=== PATIENT | male | born 1960 | race Caucasian/White ===

== ENCOUNTER → 2017-03-15 | Outpatient (CLI) | payer OTHER ==
[2017-03-15 08:27] LABS: BASO % 1 % (0-3); EOS # 0.1 x10^3/uL (0.0-0.7); EOS % 3 % (0-3); HEMATOCRIT 35.9 % (39.0-53.0); HEMOGLOBIN 12.6 g/dL (13.0-17.5); LYMPH # 0.9 x10^3/uL (1.0-4.8); LYMPH % 38 % (24-48); MEAN CORPUSCULAR HEMOGLOBIN 33 pg (25-35); MEAN CORPUSCULAR HGB CONC 35 g/dL (31-37); MEAN CORPUSCULAR VOLUME 93 fL (79-100); MONO # 0.3 x10^3/uL (0.0-1.1); MONO % 12 % (0-9); NEUT % 46 % (31-73); PLATELET COUNT 43 x10^3/uL (140-400); RED BLOOD COUNT 3.86 x10^6/uL (4.30-5.70); RED CELL DISTRIBUTION WIDTH 15.9 % (11.5-14.5); WHITE BLOOD COUNT 2.2 x10^3/uL (4.0-11.0)
[2017-03-15 08:35] LABS: ALBUMIN 2.8 g/dL (3.4-5.0); ALBUMIN/GLOBULIN RATIO 0.8 (1.0-1.7); BILIRUBIN,URINE NEG (NEG); CALCIUM 8.3 mg/dL (8.5-10.1); CLARITY,URINE CLEAR; COLOR,URINE YELLOW; CREATININE 0.9 mg/dL (0.7-1.3); GFR 87.6; GLUCOSE,URINE NEG (NEG); NITRITE,URINE NEG (NEG); POTASSIUM 4.3 mmol/L (3.5-5.1); RBC,URINE 0 /HPF (0-2); TOTAL PROTEIN 6.1 g/dL (6.4-8.2); UROBILINOGEN,URINE 1 mg/dL (0.2 mg/dL)
[2017-03-15 08:36] LABS: BACTERIA,URINE 0 /HPF (0-FEW); SQUAMOUS EPITHELIAL CELL,UR OCC /LPF; WBC,URINE 0 /HPF (0-4)
[2017-03-15 11:07] LABS: % BANDS 1 % (0-9); % BASOS 0 % (0-3); % EOS 4 % (0-5); % LYMPHS 42 % (24-48); % MONOS 11 % (0-10); % SEGS 42 % (35-66); PLT ESTIMATE DECREASED (ADEQUATE)
== END | disposition home or self-care (01) ==
LOC: EEVIPCON 08:16 → SPEC 08:16
PROVIDERS: ATTEND Nurse Practitioner Family
DX: N40.1 Benign prostatic hyperplasia with lower urinary tract symptoms (principal)
CPT/HCPCS: 36415; 80053; 81001; 85007; 85025

== ENCOUNTER → 2019-08-11 | Outpatient (CLI) | payer OTHER ==
[2019-08-11 12:22] LABS: BASO % 1 % (0-3); EOS # 0.2 x10^3/uL (0.0-0.7); EOS % 4 % (0-3); HEMATOCRIT 49.8 % (39.0-53.0); HEMOGLOBIN 16.8 g/dL (13.0-17.5); LYMPH # 1.5 x10^3/uL (1.0-4.8); LYMPH % 24 % (24-48); MEAN CORPUSCULAR HEMOGLOBIN 33 pg (25-35); MEAN CORPUSCULAR HGB CONC 34 g/dL (31-37); MEAN CORPUSCULAR VOLUME 97 fL (79-100); MONO # 0.5 x10^3/uL (0.0-1.1); MONO % 7 % (0-9); NEUT # 4.1 x10^3uL (1.8-7.7); NEUT % 65 % (31-73); PLATELET COUNT 85 x10^3/uL (140-400); RED BLOOD COUNT 5.15 x10^6/uL (4.30-5.70); WHITE BLOOD COUNT 6.3 x10^3/uL (4.0-11.0)
[2019-08-11 12:33] LABS: ALBUMIN/GLOBULIN RATIO 1.1 (1.0-1.7); CALCIUM 9.3 mg/dL (8.5-10.1); POTASSIUM 4.1 mmol/L (3.5-5.1); TOTAL BILIRUBIN 1.9 mg/dL (0.2-1.0); TOTAL PROTEIN 7.7 g/dL (6.4-8.2)
[2019-08-11 13:07] LABS: PLT ESTIMATE DECREASED (ADEQUATE)
== END | disposition home or self-care (01) ==
LOC: SPEC 12:12 → EEVIPCON 12:12
PROVIDERS: ATTEND Family Medicine
DX: R04.2 Hemoptysis (principal)
CPT/HCPCS: 36415; 80053; 85025

== ENCOUNTER → 2019-08-11 | Outpatient (CLI) | payer OTHER ==
[2019-08-11 18:31] LABS: BASO % 1 % (0-3); EOS # 0.1 x10^3/uL (0.0-0.7); EOS % 4 % (0-3); HEMATOCRIT 42.5 % (39.0-53.0); HEMOGLOBIN 14.5 g/dL (13.0-17.5); LYMPH # 0.9 x10^3/uL (1.0-4.8); LYMPH % 28 % (24-48); MEAN CORPUSCULAR HEMOGLOBIN 33 pg (25-35); MEAN CORPUSCULAR HGB CONC 34 g/dL (31-37); MEAN CORPUSCULAR VOLUME 96 fL (79-100); MONO # 0.3 x10^3/uL (0.0-1.1); MONO % 8 % (0-9); NEUT % 60 % (31-73); PLATELET COUNT 57 x10^3/uL (140-400); RED BLOOD COUNT 4.42 x10^6/uL (4.30-5.70); WHITE BLOOD COUNT 3.4 x10^3/uL (4.0-11.0)
== END | disposition home or self-care (01) ==
LOC: SPEC 18:16
PROVIDERS: ATTEND Family Medicine
DX: R04.2 Hemoptysis (principal)
CPT/HCPCS: 36415; 85025

== ENCOUNTER 2020-01-15 17:48 | Emergency (ER) | payer OTHER ==
[~2020-01-15] VITALS: Ht 177.8 cm; Wt 101.5 kg
[2020-01-15] MEDS ORDERED: IOHEXOL 350 MG/ML 100 ML VIAL. IV ONE (18:30)
[2020-01-15 18:32] LABS: BASO % 1 % (0-3); EOS # 0.2 x10^3/uL (0.0-0.7); EOS % 5 % (0-3); HEMATOCRIT 42.8 % (39.0-53.0); HEMOGLOBIN 14.6 g/dL (13.0-17.5); LYMPH # 0.9 x10^3/uL (1.0-4.8); LYMPH % 26 % (24-48); MEAN CORPUSCULAR HEMOGLOBIN 32 pg (25-35); MEAN CORPUSCULAR HGB CONC 34 g/dL (31-37); MEAN CORPUSCULAR VOLUME 92 fL (79-100); MONO # 0.4 x10^3/uL (0.0-1.1); MONO % 11 % (0-9); NEUT # 1.9 x10^3uL (1.8-7.7); NEUT % 57 % (31-73); PLATELET COUNT 51 x10^3/uL (140-400); RED BLOOD COUNT 4.64 x10^6/uL (4.30-5.70); WHITE BLOOD COUNT 3.3 x10^3/uL (4.0-11.0)
[2020-01-15 18:41] LABS: CALCIUM 8.9 mg/dL (8.5-10.1); CREATININE 1.2 mg/dL (0.7-1.3); GFR 62.2; POTASSIUM 4.4 mmol/L (3.5-5.1)
--- NOTE | 2020-01-15 19:07 | RAD ---
EXAM: CTA NECK WITH AND WITHOUT CONTRAST. HISTORY: Right neck laceration. TECHNIQUE: Computed tomographic angiography of the neck was performed before and after the intravenous administration of iodinated contrast. Three-dimensional reconstructions were also performed. COMPARISON: None. FINDINGS: Bandage material is placed along the right neck overlying the sternocleidomastoid muscle. The underlying the laceration appears superficial, and the platysma appears intact. There is no evidence of underlying vascular injury or active extravasation. Angiographic findings: The aortic arch has a typical branching pattern. There is no arch vessel stenosis. Both common carotid arteries are patent without stenosis. Both internal carotid arteries are patent without stenosis. The external carotid systems are patent. The vertebral arteries are patent. Nonangiographic findings: Bone windows reveal no suspicious lesions. There is moderate to severe degenerative disc disease from C5 through C7, with severe right uncovertebral osteoarthritis. These result in right lateral recess stenosis and severe right foraminal stenosis. The lung apices demonstrate no acute abnormality. The parotid glands and submandibular glands are unremarkable. The left thyroid lobe is subtotally atrophic. There are no laryngeal or pharyngeal masses. There are no pathologically enlarged lymph nodes. IMPRESSION: 1. The right and a laceration appears superficial. No evidence of vascular injury. 2. No hemodynamically significant cervical arterial stenosis. PQRS Compliance Statement - Stenosis calculations for CT, MR and conventional angiography are based upon measurement of the distal ICA diameter in accordance with the NASCET methodology. Stenosis calculations for carotid ultrasound studies are derived from validated velocity criteria which are known to correlate with the NASCET methodology. *One or more of the following individualized dose reduction techniques were utilized for this examination: 1. Automated exposure control. 2. Adjustment of the mA and/or kV according to patient size. 3. Use of iterative reconstruction technique. Electronically signed by: David Duvall MD (01/15/2020 7:04 PM) [facility]
[2020-01-15 19:21] LABS: PLT ESTIMATE DECREASED (ADEQUATE)
[2020-01-15 19:38] VITALS: BP 154/72
[2020-01-15] MEDS ORDERED: IV NORMAL SALINE 50ML 50 ML ONE (19:41)
[2020-01-15] MEDS ORDERED: cefTRIAXone SODIUM 1 GM VIAL ONE (19:41)
--- NOTE | 2020-01-15 20:10 | PHYS DOC ---
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 The patient cut himself with a razor. He just found out that his cancer treatments are not working and he has end-stage liver cancer. The patient currently regrets his decision. He has a Y-shaped laceration of the right neck. It is bleeding but not briskly. He has no other injuries. Review of Systems: Review of Systems: Constitutional: Denies fever or chills Eyes: Denies change in visual acuity HENT: Denies nasal congestion or sore throat Respiratory: Denies cough or shortness of breath Cardiovascular: Denies chest pain or edema GI: Denies abdominal pain, nausea, vomiting, bloody stools or diarrhea : Denies dysuria Musculoskeletal: Denies back pain or joint pain Integument: Neck laceration Neurologic: Denies headache, focal weakness or sensory changes Endocrine: Denies polyuria or polydipsia Lymphatic: Denies swollen glands Psychiatric: Denies depression or anxiety Heart Score: Risk Factors: Risk Factors: DM, Current or recent (<one month) smoker, HTN, HLP, family history of CAD, obesity. Risk Scores: Score 0 - 3: 2.5% MACE over next 6 weeks - Discharge Home Score 4 - 6: 20.3% MACE over next 6 weeks - Admit for Clinical Observation Score 7 - 10: 72.7% MACE over next 6 weeks - Early Invasive Strategies Current Medications: Current Meds: Current Medications Medications (Trade) Dose Ordered Sig/Chacha Start Time Stop Time Status Last Admin Dose Admin Ceftriaxone Sodium 1 gm/ Sodium Chloride 50 ml @ 100 mls/hr 1X ONCE 01/15/20 20:00 01/15/20 20:29 01/15/20 19:43 100 MLS/HR Ceftriaxone Sodium (Rocephin) 1 gm STK-MED ONCE 01/15/20 19:41 01/15/20 19:41 DC Iohexol (Omnipaque 350 Mg/ml) 100 ml 1X ONCE 01/15/20 18:30 01/15/20 18:32 DC 01/15/20 18:25 100 ML Sodium Chloride 50 ml @ As Directed STK-MED ONCE 01/15/20 19:41 01/15/20 19:41 DC Allergies: Allergies: Allergies Coded Allergies Type Severity Reaction Last Updated Verified ketorolac Allergy Intermediate 01/15/20 Yes Physical Exam: PE: Constitutional: Well developed, well nourished, no acute distress, non-toxic appearance. [] HENT: Normocephalic, atraumatic, bilateral external ears normal, oropharynx moist, no oral exudates, nose normal. [] Eyes: PERRLA, EOMI, conjunctiva normal, no discharge. [] Neck: Normal range of motion, no tenderness, supple, no stridor. [] Cardiovascular:Heart rate regular rhythm, no murmur [] Lungs & Thorax: Bilateral breath sounds clear to auscultation [] Abdomen: Bowel sounds normal, soft, no tenderness, no masses, no pulsatile masses. [] Skin: 9 cm Y-shaped laceration of the right neck, superficial [] Back: No tenderness, no CVA tenderness. [] Extremities: No tenderness, no cyanosis, no clubbing, ROM intact, no edema. [] Neurologic: Alert and oriented X 3, normal motor function, normal sensory function, no focal deficits noted. [] Psychologic: Affect normal, judgement normal, mood normal. [] Current Patient Data: Labs: Laboratory Tests Test 01/15/20 18:09 White Blood Count 3.3 x10^3/uL (4.0-11.0) L Red Blood Count 4.64 x10^6/uL (4.30-5.70) Hemoglobin 14.6 g/dL (13.0-17.5) Hematocrit 42.8 % (39.0-53.0) Mean Corpuscular Volume 92 fL (79-100) Mean Corpuscular Hemoglobin 32 pg (25-35) Mean Corpuscular Hemoglobin Concent 34 g/dL (31-37) Red Cell Distribution Width 14.0 % (11.5-14.5) Platelet Count 51 x10^3/uL (140-400) L Neutrophils (%) (Auto) 57 % (31-73) Lymphocytes (%) (Auto) 26 % (24-48) Monocytes (%) (Auto) 11 % (0-9) H Eosinophils (%) (Auto) 5 % (0-3) H Basophils (%) (Auto) 1 % (0-3) Neutrophils # (Auto) 1.9 x10^3uL (1.8-7.7) Lymphocytes # (Auto) 0.9 x10^3/uL (1.0-4.8) L Monocytes # (Auto) 0.4 x10^3/uL (0.0-1.1) Eosinophils # (Auto) 0.2 x10^3/uL (0.0-0.7) Basophils # (Auto) 0.0 x10^3/uL (0.0-0.2) Platelet Estimate Decreased (ADEQUATE) Sodium Level 140 mmol/L (136-145) Potassium Level 4.4 mmol/L (3.5-5.1) Chloride Level 107 mmol/L (98-107) Carbon Dioxide Level 24 mmol/L (21-32) Anion Gap 9 (6-14) Blood Urea Nitrogen 18 mg/dL (8-26) Creatinine 1.2 mg/dL (0.7-1.3) Estimated GFR (Cockcroft-Gault) 62.2 Glucose Level 257 mg/dL (70-99) H Calcium Level 8.9 mg/dL (8.5-10.1) Vital Signs: Vital Signs Date Time Temp Pulse Resp B/P (MAP) Pulse Ox O2 Delivery O2 Flow Rate FiO2 01/15/20 19:38 60 16 154/72 (99) 97 Nasal Cannula 2.0 01/15/20 17:59 98.3 EKG: EKG: [] Radiology/Procedures: Radiology/Procedures: [] Course & Med Decision Making: Course & Med Decision Making Pertinent Labs and Imaging studies reviewed. (See chart for details) The patient had a complex Y-shaped laceration of his neck. I repaired it with sutures. See note below for more details. The patient's tetanus is up-to-date. He is suicidal but [facility] is in [facility] manage his [facility] evaluation. He is medically stable to return to [facility]. [] Dragon Disclaimer: Dragon Disclaimer: This electronic medical record was generated, in whole or in part, using a voice recognition dictation system. Laceration Repair Lac Repair Indication: [] 9 cm Y-shaped laceration of the right neck Procedure: I obtained verbal consent from the patient and his guards for suture repair of his laceration. The wound was thoroughly irrigated with normal saline under pressure. No foreign bodies were found. I used 1% lidocaine without epinephrine for anesthesia. A total of 4 ml was used. Once good anesthesia was achieved, I repaired the wound with 4-0 Ethilon sutures. 11 sutures in interrupted fashion were placed. There was good skin approximation. Bleeding was controlled. Wound was covered with Xeroform and Tegaderm. The patient's tetanus was less than 6 months old. Total repaired wound length: 9 cm Other Items: None The patient tolerated the procedure well. Complications: Y-shaped laceration of the neck Departure Departure: Impression: Primary Impression: Laceration of neck Qualified Codes: S11.91XA - Laceration without foreign body of unspecified part of neck, initial encounter Additional Impression: Suicide attempt Disposition: 01 HOME/RESIDENCE PRIOR TO ADM Condition: STABLE Referrals: MARC GREENBERG (PCP) Patient Instructions: Laceration Care, Adult, [id number] Justification of Admission: Justification of Admission: Justification of Admission Dx: N/A HARRIET FATIMA DO Jan 15, 2020 20:10
== END 2020-01-15 20:20 | disposition home or self-care (01) ==
LOC: EEVIPCON 17:48 → ER 17:48
DX: S11.91XA Laceration without foreign body of unspecified part of neck, initial encounter (principal); E11.9 Type 2 diabetes mellitus without complications; I10 Essential (primary) hypertension; C22.8 Malignant neoplasm of liver, primary, unspecified as to type; Z88.8 Allergy status to other drugs, medicaments and biological substances; X78.8XXA Intentional self-harm by other sharp object, initial encounter; Y93.89 Activity, other specified; Y92.89 Other specified places as the place of occurrence of the external cause; Y99.8 Other external cause status
CPT/HCPCS: 12004; 36415; 70498; 80048; 85025; 96365; 99284; J0696; Q9967

== ENCOUNTER 2020-02-24 23:15 | Emergency (ER) | payer OTHER ==
[~2020-02-24] VITALS: Ht 188 cm; Wt 102.6 kg
[2020-02-24 23:54] LABS: CALCIUM 8.3 mg/dL (8.5-10.1); GFR 76.7; POTASSIUM 5.4 mmol/L (3.5-5.1)
--- NOTE | 2020-02-24 23:57 | RAD ---
INDICATION: Reason: CP / Spl. Instructions: / History: COMPARISON: July 06, 2017 FINDINGS: Single view of chest obtained. Mild linear opacity at lung bases. Cardiac silhouette is mildly prominent. Old left clavicular fracture with callus formation. IMPRESSION: * Linear opacities lung bases could be secondary to atelectasis. Electronically signed by: Mauri Pearson MD (02/24/2020 11:54 PM) [id number]
[2020-02-25 00:02] LABS: BASO # 0.1 x10^3/uL (0.0-0.2); BASO % 1 % (0-3); EOS # 0.2 x10^3/uL (0.0-0.7); EOS % 4 % (0-3); HEMATOCRIT 44.5 % (39.0-53.0); HEMOGLOBIN 15.1 g/dL (13.0-17.5); LYMPH # 1.4 x10^3/uL (1.0-4.8); LYMPH % 30 % (24-48); MEAN CORPUSCULAR HEMOGLOBIN 31 pg (25-35); MEAN CORPUSCULAR HGB CONC 34 g/dL (31-37); MEAN CORPUSCULAR VOLUME 92 fL (79-100); MONO # 0.5 x10^3/uL (0.0-1.1); MONO % 11 % (0-9); NEUT # 2.4 x10^3uL (1.8-7.7); NEUT % 54 % (31-73); PLATELET COUNT 83 x10^3/uL (140-400); RED BLOOD COUNT 4.83 x10^6/uL (4.30-5.70); RED CELL DISTRIBUTION WIDTH 15.2 % (11.5-14.5); WHITE BLOOD COUNT 4.5 x10^3/uL (4.0-11.0)
[2020-02-25 00:08] LABS: ALBUMIN 2.9 g/dL (3.4-5.0); ALBUMIN/GLOBULIN RATIO 0.8 (1.0-1.7); TOTAL BILIRUBIN 1.4 mg/dL (0.2-1.0); TOTAL PROTEIN 6.6 g/dL (6.4-8.2)
[2020-02-25] MEDS ORDERED: INSULIN REGULAR 100 UNIT/ML 3ML VIAL. IV ONE (00:15)
[2020-02-25] MEDS ORDERED: ONDANSETRON PF 4 MG/2 ML VIAL. IVP ONE (00:15)
[2020-02-25] MEDS ORDERED: MORPHINE SULFATE 2 MG/ML DISP.SYRIN. IV ONE ×2 (00:15→01:30)
[2020-02-25] MEDS ORDERED: IV NORMAL SALINE 1,000ML 1,000 ML IV ONE (00:15)
--- NOTE | 2020-02-25 00:17 | PHYS DOC ---
Past History Past Medical History: Cancer, Diabetes, Hypertension Past Surgical History: No Surgical History Alcohol Use: None General Adult EDM: Chief Complaint: CHEST PAIN HPI: HPI: 60-year-old male presents from [facility] with chest pain. Patient was sitting watching TV around 10 PM when he started to have central chest pain that radiated to his left arm. It is a squeezing and cramping sensation. It is moderate in intensity. The patient is a diabetic and is had difficulty co ntrolling his blood sugars lately. On arrival was 386. Patient further states that the pain is moved down the left arm and he has some pain in the right side of his neck. He denies trauma or falls. He just recently got restarted on his blood pressure medicine list 3 or 4 days. His blood pressure earlier today was 180s. He denies fever or chills. He had COVID-19 and has recovered. Review of Systems: Review of Systems: Constitutional: Denies fever or chills Eyes: Denies change in visual acuity HENT: Denies nasal congestion or sore throat Respiratory: Denies cough or shortness of breath Cardiovascular: Chest pain GI: Denies abdominal pain, nausea, vomiting, bloody stools or diarrhea : Denies dysuria Musculoskeletal: Left arm pain and tingling. Integument: Denies rash Neurologic: Denies headache, focal weakness or sensory changes Endocrine: Denies polyuria or polydipsia Lymphatic: Denies swollen glands Psychiatric: Denies depression or anxiety Heart Score: HEART Score for Chest Pain: HEART Score for Chest Pain Response (Comments) Value History Slighlty/Non-Suspicious 0 ECG Nonspecific Repolarizatio 1 Age >45 - < 65 1 Risk Factors 1 or 2 Risk Factors 1 Troponin < Normal Limit 0 Total 3 Risk Factors: Risk Factors: DM, Current or recent (<one month) smoker, HTN, HLP, family history of CAD, obesity. Risk Scores: Score 0 - 3: 2.5% MACE over next 6 weeks - Discharge Home Score 4 - 6: 20.3% MACE over next 6 weeks - Admit for Clinical Observation Score 7 - 10: 72.7% MACE over next 6 weeks - Early Invasive Strategies Current Medications: Current Meds: Current Medications Medications (Trade) Dose Ordered Sig/Chacha Start Time Stop Time Status Last Admin Dose Admin Morphine Sulfate (Morphine 2mg Syringe) 2 mg 1X ONCE 02/25/20 00:15 02/25/20 00:16 UNV Ondansetron HCl (Zofran) 4 mg 1X ONCE 02/25/20 00:15 02/25/20 00:16 UNV Sodium Chloride 1,000 ml @ 1,000 mls/hr 1X ONCE 02/25/20 00:15 02/25/20 01:14 UNV Allergies: Allergies: Allergies Coded Allergies Type Severity Reaction Last Updated Verified ketorolac Allergy Intermediate 01/15/20 Yes Physical Exam: PE: Constitutional: Well developed, well nourished, no acute distress, non-toxic appearance. [] HENT: Normocephalic, atraumatic, bilateral external ears normal, oropharynx moist, no oral exudates, nose normal. [] Eyes: PERRLA, EOMI, conjunctiva normal, no discharge. [] Neck: Normal range of motion, no tenderness, supple, no stridor. [] Cardiovascular: Heart rate regular rhythm, no murmur [] Lungs & Thorax: Bilateral breath sounds clear to auscultation [] Abdomen: Bowel sounds normal, soft, no tenderness, no masses, no pulsatile masses. [] Skin: Warm, dry, no erythema, no rash. [] Back: No tenderness, no CVA tenderness. [] Extremities: No tenderness, no cyanosis, no clubbing, ROM intact, no edema. [] Neurologic: Alert and oriented X 3, normal motor function, normal sensory function, no focal deficits noted. [] Psychologic: Affect normal, judgement normal, mood normal. [] EKG: EKG: Sinus rhythm, rate 72, leftward axis, no ST elevations or depressions, PVC. [] Radiology/Procedures: Radiology/Procedures: [] Impressions: INDICATION: Reason: CP / Spl. Instructions: / History: COMPARISON: July 06, 2017 FINDINGS: Single view of chest obtained. Mild linear opacity at lung bases. Cardiac silhouette is mildly prominent. Old left clavicular fracture with callus formation. IMPRESSION: * Linear opacities lung bases could be secondary to atelectasis. Electronically signed by: Amanda Pearson MD (02/24/2020 11:54 PM) [id number] DICTATED AND SIGNED BY: AMANDA PEARSON MD DATE: 02/24/20 [id number] CC: HARRIET FATIMA DO; MARC GREENBERG ~ Course & Med Decision Making: Course & Med Decision Making Pertinent Labs and Imaging studies reviewed. (See chart for details) The patient's initial blood sugar is 386. We will give him a liter of normal saline and 10 units of regular insulin IV. Labs are pending. His EKG is ne gative for acute findings. His chest x-ray shows some atelectasis. He has several abnormal labs consistent with his liver disease. He also has a potassium of 5.4 but the specimen is slightly hemolyzed. He has a history of being in the mid to high fours in the past. See labs for more details. The patient's repeat blood sugar is just over 200. I have given the patient a total of 4 mg of morphine for his discomfort. He is already on tramadol at the present. I believe there is anything else that we can do for him at this time. He is stable for discharge. [] Dragon Disclaimer: Dragon Disclaimer: This electronic medical record was generated, in whole or in part, using a voice recognition dictation system. 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
[2020-02-25 00:35] LABS: % ATYL 4 % (0-0); % LYMPHS 27 % (24-48); % MONOS 12 % (0-10); % SEGS 57 % (35-66)
[2020-02-25 00:36] LABS: PLT ESTIMATE DECREASED (ADEQUATE)
[2020-02-25] MEDS ORDERED: GABA600T7 PO (00:59)
[2020-02-25] MEDS ORDERED: vitamin D3 PO (00:59)
[2020-02-25] MEDS ORDERED: TRAM50TA PO (00:59)
[2020-02-25] MEDS ORDERED: CARV3.12 PO (00:59)
[2020-02-25] MEDS ORDERED: NPH,100V SQ ×2 (00:59)
[2020-02-25] MEDS ORDERED: METF500T16 PO (00:59)
[2020-02-25] MEDS ORDERED: ALBU2.5V8 INH (00:59)
[2020-02-25] MEDS ORDERED: TOLN108P2 TP (00:59)
[2020-02-25] MEDS ORDERED: FURO-69 PO (01:03)
[2020-02-25] MEDS ORDERED: LOSA50TA86 PO (01:03)
[2020-02-25] MEDS ORDERED: ACET325T9 PO (01:03)
[2020-02-25] MEDS ORDERED: INSU100V5 IJ (01:03)
[2020-02-25] MEDS ORDERED: MIRT15TA3 PO (01:03)
[2020-02-25 01:30] VITALS: BP 149/90
--- NOTE | 2020-02-25 02:28 | EKG ---
[address] [address] Test Date: 2020-02-24 Test Time: 23:18:45 Pat Name: MAL MCDANIEL Department: Room: Gender: M Lip Cutter: : 1960 Requested By: HARRIET FATIMA Order Number: [id number] Reading MD: Measurements Intervals [place] Rate: 72 P: -42 OK: 176 QRS: -48 QRSD: 116 T: 62 QT: 434 QTc: 477 Interpretive Statements SUPRAVENTRICULAR RHYTHM VENTRICULAR PREMATURE COMPLEX(ES) ABNORMAL LEFT AXIS DEVIATION R-S TRANSITION ZONE IN V LEADS DISPLACED TO THE RIGHT LEFT ANTERIOR FASCICULAR BLOCK LEFT VENTRICULAR HYPERTROPHY QRS(T) CONTOUR ABNORMALITY CONSIDER ANTEROSEPTAL MYOCARDIAL DAMAGE PROLONGED QT ABNORMAL ECG RI6.02 No previous ECG available for comparison
[2020-02-25 05:05] LABS: BILIRUBIN,URINE NEG (NEG); CLARITY,URINE HAZY; COLOR,URINE YELLOW; GLUCOSE,URINE >=1000 mg/dL (NEG)
[2020-02-25 05:06] LABS: BACTERIA,URINE FEW /HPF (0-FEW); NITRITE,URINE NEG (NEG); SQUAMOUS EPITHELIAL CELL,UR FEW /LPF; WBC,URINE 0 /HPF (0-4)
== END 2020-02-25 01:45 | disposition home or self-care (01) ==
LOC: ER 23:15 → EEVIPCON 23:15 → ER 02-25 01:45
DX: R07.89 Other chest pain (principal); E11.65 Type 2 diabetes mellitus with hyperglycemia; I10 Essential (primary) hypertension; Z79.4 Long term (current) use of insulin; Z88.8 Allergy status to other drugs, medicaments and biological substances
CPT/HCPCS: 36415; 71045; 80053; 81001; 82947; 83880; 84484; 85007; 85025; 93005; 96361; 96374; 96375; 96376; 99285; J1815; J2270; J2405; J7030

== ENCOUNTER → 2020-06-11 | Outpatient (CLI) | payer OTHER ==
[~2020-06-11] MED LIST: ACET325T9 PO; ALBU2.5V8 INH; CARV3.12 PO; FURO-69 PO; GABA600T7 PO; INSU100V5 IJ; LOSA50TA86 PO; METF500T16 PO; MIRT15TA3 PO; NPH,100V SQ; TOLN108P2 TP; TRAM50TA PO; vitamin D3 PO
[2020-06-11 02:07] LABS: BASO % 1 % (0-3); CALCIUM 8.8 mg/dL (8.5-10.1); CREATININE 1.1 mg/dL (0.7-1.3); EOS # 0.2 x10^3/uL (0.0-0.7); EOS % 4 % (0-3); GFR 68.8; HEMATOCRIT 42.6 % (39.0-53.0); HEMOGLOBIN 13.9 g/dL (13.0-17.5); LYMPH # 1.2 x10^3/uL (1.0-4.8); LYMPH % 25 % (24-48); MEAN CORPUSCULAR HEMOGLOBIN 30 pg (25-35); MEAN CORPUSCULAR HGB CONC 33 g/dL (31-37); MEAN CORPUSCULAR VOLUME 90 fL (79-100); MONO # 0.5 x10^3/uL (0.0-1.1); MONO % 10 % (0-9); NEUT # 2.8 x10^3uL (1.8-7.7); NEUT % 60 % (31-73); PLATELET COUNT 71 x10^3/uL (140-400); POTASSIUM 4.7 mmol/L (3.5-5.1); RED BLOOD COUNT 4.72 x10^6/uL (4.30-5.70); RED CELL DISTRIBUTION WIDTH 16.7 % (11.5-14.5); WHITE BLOOD COUNT 4.6 x10^3/uL (4.0-11.0)
[2020-06-11 02:13] LABS: ALBUMIN 3.2 g/dL (3.4-5.0); ALBUMIN/GLOBULIN RATIO 0.9 (1.0-1.7); PHOSPHORUS 4.5 mg/dL (2.6-4.7); TOTAL BILIRUBIN 0.9 mg/dL (0.2-1.0); TOTAL PROTEIN 6.8 g/dL (6.4-8.2); URIC ACID 4.6 mg/dL (3.5-7.2)
[2020-06-11 02:16] LABS: BACTERIA,URINE 0 /HPF (0-FEW); BILIRUBIN,URINE NEG (NEG); CLARITY,URINE CLEAR; COLOR,URINE YELLOW; GLUCOSE,URINE 500 mg/dL (NEG); NITRITE,URINE NEG (NEG); RBC,URINE RARE /HPF (0-2); SQUAMOUS EPITHELIAL CELL,UR OCC /LPF; UROBILINOGEN,URINE 0.2 mg/dL (0.2 mg/dL); WBC,URINE RARE /HPF (0-4)
== END ==
LOC: SPEC 01:37
PROVIDERS: ATTEND Student in an Organized Health Care Education/Training Program
DX: E72.20 Disorder of urea cycle metabolism, unspecified (principal)
CPT/HCPCS: 36415; 80053; 81001; 82977; 83615; 84100; 84550; 85025

== ENCOUNTER → 2020-07-19 | Outpatient (CLI) | payer OTHER ==
[2020-07-19 02:30] LABS: BASO # 0.1 x10^3/uL (0.0-0.2); BASO % 1 % (0-3); EOS # 0.1 x10^3/uL (0.0-0.7); EOS % 2 % (0-3); HEMATOCRIT 41.9 % (39.0-53.0); HEMOGLOBIN 13.8 g/dL (13.0-17.5); LYMPH % 15 % (24-48); MEAN CORPUSCULAR HEMOGLOBIN 28 pg (25-35); MEAN CORPUSCULAR HGB CONC 33 g/dL (31-37); MEAN CORPUSCULAR VOLUME 85 fL (79-100); MONO # 0.6 x10^3/uL (0.0-1.1); MONO % 9 % (0-9); NEUT # 4.9 x10^3uL (1.8-7.7); NEUT % 73 % (31-73); PLATELET COUNT 126 x10^3/uL (140-400); RED BLOOD COUNT 4.93 x10^6/uL (4.30-5.70); RED CELL DISTRIBUTION WIDTH 17.1 % (11.5-14.5); WHITE BLOOD COUNT 6.7 x10^3/uL (4.0-11.0)
== END ==
LOC: SPEC 01:46
PROVIDERS: ATTEND General Practice
DX: E27.2 Addisonian crisis (principal)
CPT/HCPCS: 36415; 80053; 82140; 85025

== ENCOUNTER 2021-02-28 02:36 | Inpatient (IN) | payer OTHER ==
[~2021-02-28] VITALS: Ht 188 cm; Wt 102.4 kg
[~2021-02-28 02:36] MED LIST changes: +MIRT-7 PO; -MIRT15TA3 PO
[2021-02-28] MEDS ORDERED: CONTRAST GIVEN. MC PRN (03:00)
[2021-02-28] MEDS ORDERED: MORPHINE SULFATE 4 MG/ML DISP.SYRIN. IV ONE ×2 (03:15→05:15)
[2021-02-28 03:27] LABS: BASO % 1 % (0-3); EOS # 0.1 x10^3/uL (0.0-0.7); EOS % 3 % (0-3); HEMATOCRIT 43.4 % (39.0-53.0); HEMOGLOBIN 14.2 g/dL (13.0-17.5); LYMPH # 1.1 x10^3/uL (1.0-4.8); LYMPH % 19 % (24-48); MEAN CORPUSCULAR HEMOGLOBIN 28 pg (25-35); MEAN CORPUSCULAR HGB CONC 33 g/dL (31-37); MEAN CORPUSCULAR VOLUME 85 fL (79-100); MONO # 0.3 x10^3/uL (0.0-1.1); MONO % 6 % (0-9); NEUT # 4.2 x10^3uL (1.8-7.7); NEUT % 72 % (31-73); PLATELET COUNT 76 x10^3/uL (140-400); RED BLOOD COUNT 5.11 x10^6/uL (4.30-5.70); RED CELL DISTRIBUTION WIDTH 20.3 % (11.5-14.5); WHITE BLOOD COUNT 5.8 x10^3/uL (4.0-11.0)
[2021-02-28] MEDS ORDERED: IOHEXOL 350 MG/ML 100 ML VIAL. IV ONE (03:30)
--- NOTE | 2021-02-28 03:32 | PHYS DOC ---
Past History Past Medical History: Anemia, Anxiety, Cancer, COPD, Depression, Diabetes, GERD, GI Bleed, Hypertension, Liver Disease, Other Additional Past Medical Histor: Covid-19 Oct, 2019; cancer of liver; esophageal and stomach varices-abdpain Past Surgical History: Cholecystectomy, Other Additional Past Surgical Histo: banding of esoph varices x14;cauterized stom varices; alexandre ing nikole repair Alcohol Use: None Adult General Chief Complaint Chief Complaint: SHORTNESS OF BREATH HPI HPI Patient is a 61-year-old male who presents from [facility] in custody for chief complaint of shortness of breath. Patient has a significant past medical history of end-stage cholangiocarcinoma no longer on chemotherapy or radiation, COPD and anemia who presents with shortness of breath. States that he is always somewhat short of breath and on 3 to 4 L of oxygen all the time but over the last 12 hours or so has gotten considerably more short of breath and required much more oxygen. Denies any recent traumas, travels, illnesses, fevers, chest pain, dysuria, hematuria, diarrhea or blood in the stool. Denies any nausea or vomiting. Does endorse dyspnea on exertion, some orthopnea, PND and bilateral lower extremity edema. Endorses distended abdomen, with some cramping, 5 out of 10, dull and achy in nature. States he has been eating and drinking normally. States he is making urine and stool normally for him. Patient states he is DNR, not wanting any chest compressions, shocks or intubation. States that noninvasive positive pressure ventilation/oxygen, fluids, blood pressure medicines, pain and nausea medicines and antibiotics are okay. Review of Systems Review of Systems Review of systems otherwise unremarkable except noted in HPI Current Medications Current Medications Current Medications Medications (Trade) Dose Ordered Sig/Chacha Start Time Stop Time Status Last Admin Dose Admin Info (Do NOT chart on this entry -- for MONITORING) 1 each PRN DAILY PRN 02/28/21 03:00 03/02/21 02:59 Iohexol (Omnipaque 350 Mg/ml) 100 ml 1X ONCE 02/28/21 03:30 02/28/21 03:31 02/28/21 03:23 100 ML Morphine Sulfate (Morphine 4mg Syringe) 4 mg 1X ONCE 02/28/21 03:15 02/28/21 03:16 DC Allergies Allergies Allergies Coded Allergies Type Severity Reaction Last Updated Verified ketorolac Allergy Intermediate 02/28/21 Yes NSAIDS (Non-Steroidal Anti-Inflamma Allergy Unknown 02/25/20 Yes calcium carbonate Allergy Unknown 02/25/20 Yes enalapril Allergy Unknown 02/25/20 Yes Physical Exam Physical Exam Constitutional: Well developed, well nourished, no acute distress, non-toxic appearance. [] HENT: Normocephalic, atraumatic, bilateral external ears normal, oropharynx moist, no oral exudates, nose normal. [] Eyes: conjunctiva normal, no discharge. [] Neck: Normal range of motion, no tenderness, supple, no stridor. [] Cardiovascular: Sinus tachycardia Lungs & Thorax: Bilateral breath sounds with global mild rales, decreased air movement and chest expansion, tachypnea and hypoxia with increased work of breathing on room air Abdomen: Distended, hard, generalized tenderness, no rebound or guarding Skin: Warm, dry, no erythema, no rash. [] Back: no CVA tenderness. [] Extremities: No tenderness, no cyanosis, no clubbing, ROM intact, bilateral lower extremity 2+ pitting edema Neurologic: Alert and oriented X 3, no focal deficits noted. [] Psychologic: Affect normal, judgement normal, mood normal. [] Current Patient Data Vital Signs Vital Signs Date Time Temp Pulse Resp B/P (MAP) Pulse Ox O2 Delivery O2 Flow Rate FiO2 02/28/21 02:52 98.5 95 40 161/99 92 15.0 EKG EKG [] Radiology/Procedures Radiology/Procedures [] CT abdomen and pelvis without contrast: Reason for examination: Acute shortness of breath and hypoxia. History of hepatitis and hepatocellular carcinoma. Comparison is made to previous study dated 07/30/2019. Helical images were obtained through the abdomen and pelvis with no contrast ad ministered. Reconstruction was performed in sagittal and coronal planes. There continues to be a rim calcified exophytic mass in segment 3 of the liver measuring 2.8 cm in greatest dimension which appears to be stable. There also continues to be focal decreased density in the inferior right lobe of liver, segment 6 which has enlarged and measures approximately 4 cm in greatest dim ension. This may reflect the location of the hepatocellular carcinoma. The liver appears to be cirrhotic. The spleen is enlarged at approximately 17 cm in greatest dimension. No abnormalities of seen at the adrenal glands or pancreas. Gallbladder is surgically absent. The kidneys show no renal masses, renal calculi, hydronephrosis or evidence of obstructive uropathy. No abnormality seen at the appendix. The colon shows no diverticulosis, diverticulitis or colitis. The small intestinal tract shows no abnormal dilatation, wall thickening or obstruction. No acute abnormality seen at the stomach or duodenum. There does appear to be some free ascites prevertebral around the liver and spleen. No abnormality seen at the bladder. Prostate gland contains calcifications. Seminal vesicles are symmetric. No acute bony abnormalities are seen. IMPRESSION: Cirrhotic liver with a enlarging mass in the inferior right lobe of the liver now measuring 4 cm in greatest dimension and probably correspond to the patient's known hepatocellular carcinoma. Rim calcified exophytic mass in the left lobe of the liver measuring 2.8 cm in greatest dimension without significant change. Splenomegaly. Ascites which is increased from previous exam. CT angiogram of the chest with contrast: Helical images were obtained through the chest with intravenous administration of 98 cc Omnipaque 350 using PE protocol. 3-D MIPS reconstruction was performed in sagittal and coronal planes. No abnormality seen at the thyroid gland. The trachea and mainstem bronchi show no intraluminal lesions. No abnormality seen at the esophagus. The thoracic aorta shows no aneurysmal dilatation or dissection. The heart size is normal with no pericardial effusion. No pulmonary embolus is evident. There are a few small bullous changes in the apices of the lungs. There is some dependent atelectasis but no gross consolidated infiltrates or pleural effusions are seen. No acute bony abnormalities are seen. IMPRESSION: No evidence of pulmonary embolus. No aortic aneurysm or dissection. No acute cardiopulmonary disease evident. Heart Score C/O Chest Pain: No Risk Factors: Risk Factors: DM, Current or recent (<one month) smoker, HTN, HLP, family history of CAD, obesity. Risk Scores: Risk Factors: DM, Current or recent (<one month) smoker, HTN, HLP, family history of CAD, obesity. Course & Med Decision Making Course & Med Decision Making Patient is a 61-year-old male who presents with acute shortness of breath Vital signs notable for hypertension, tachycardia, tachypnea, hypoxia on room air requiring 15 L nasal cannula to get to approximately 93% saturation. Placed on the monitor with IV access established. Given pain medicine. Denied need for nausea medicine at this time. EKG noted above with sinus tachycardia. Troponin normal. Coags normal. ABG not concerning. CTs of the chest abdomen pelvis with no PE, no pneumonia or pneumothorax, did show worsening liver mass and a small amount of ascites, cirrhotic liver corresponding with patient's known hepatocellular carcinoma and splenomegaly. Patient given Rocephin to cover for SBP. Given continued pain management. Given Protonix. Discussed all findings with patient and recommended admission for continued evaluation and treatment of his hypoxia and possible SBP. Patient grateful, verbalized understanding and agreed with plan of admission. Dragon Disclaimer Dragon Disclaimer This electronic medical record was generated, in whole or in part, using a voice recognition dictation system. Departure Departure: Disposition: ADMITTED INPATIENT Admitting Physician: Arnaldo Rivera Condition: STABLE Referrals: MECCA BLACKWELL MD (PCP) CHRISTIE LIM MD Feb 28, 2021 03:32
[2021-02-28 03:57] LABS: CALCIUM 8.2 mg/dL (8.5-10.1); CREATININE 0.5 mg/dL (0.7-1.3); GFR 170.2; POTASSIUM 5.3 mmol/L (3.5-5.1)
[2021-02-28 04:11] LABS: ALBUMIN 3.3 g/dL (3.4-5.0); ALBUMIN/GLOBULIN RATIO 1.1 (1.0-1.7); TOTAL PROTEIN 6.4 g/dL (6.4-8.2)
--- NOTE | 2021-02-28 04:13 | RAD ---
CT abdomen and pelvis without contrast: Reason for examination: Acute shortness of breath and hypoxia. History of hepatitis and hepatocellula r carcinoma. Comparison is made to previous study dated 07/30/2019. Helical images were obtained through the abdomen and pelvis with no contrast administered. Reconstruc tion was performed in sagittal and coronal planes. There continues to be a rim calcified exophytic mass in segment 3 of the liver measuring 2.8 cm in gr eatest dimension which appears to be stable. There also continues to be focal decreased density in th e inferior right lobe of liver, segment 6 which has enlarged and measures approximately 4 cm in great est dimension. This may reflect the location of the hepatocellular carcinoma. The liver appears to be cirrhotic. The spleen is enlarged at approximately 17 cm in greatest dimension. No abnormalities of seen at the adrenal glands or pancreas. Gallbladder is surgically absent. The kidneys show no renal m asses, renal calculi, hydronephrosis or evidence of obstructive uropathy. No abnormality seen at the appendix. The colon shows no diverticulosis, diverticulitis or colitis. The small intestinal tract sh ows no abnormal dilatation, wall thickening or obstruction. No acute abnormality seen at the stomach or duodenum. There does appear to be some free ascites prevertebral around the liver and spleen. No abnormality seen at the bladder. Prostate gland contains calcifications. Seminal vesicles are symm etric. No acute bony abnormalities are seen. IMPRESSION: Cirrhotic liver with a enlarging mass in the inferior right lobe of the liver now measuring 4 cm in g reatest dimension and probably correspond to the patient's known hepatocellular carcinoma. Rim calcified exophytic mass in the left lobe of the liver measuring 2.8 cm in greatest dimension wit hout significant change. Splenomegaly. Ascites which is increased from previous exam. CT angiogram of the chest with contrast: Helical images were obtained through the chest with intravenous administration of 98 cc Omnipaque 350 using PE protocol. 3-D MIPS reconstruction was performed in sagittal and coronal planes. No abnormality seen at the thyroid gland. The trachea and mainstem bronchi show no intraluminal lesio ns. No abnormality seen at the esophagus. The thoracic aorta shows no aneurysmal dilatation or dissec tion. The heart size is normal with no pericardial effusion. No pulmonary embolus is evident. There a re a few small bullous changes in the apices of the lungs. There is some dependent atelectasis but no gross consolidated infiltrates or pleural effusions are seen. No acute bony abnormalities are seen. IMPRESSION: No evidence of pulmonary embolus. No aortic aneurysm or dissection. No acute cardiopulmonary disease evident. Exposure: One or more of the following individualized dose reduction techniques were utilized for thi s examination: 1. Automated exposure control 2. Adjustment of the mA and/or kV according to patient size 3. Use of iterative reconstruction technique. Electronically signed by: Isabella Musa MD (02/28/2021 4:11 AM) YAKELIN
[2021-02-28 04:14] LABS: PLT ESTIMATE DECREASED (ADEQUATE)
[2021-02-28] MEDS ORDERED: HYDR25CA75 PO ×2 (04:32→09:51)
[2021-02-28] MEDS ORDERED: POLY17PO5 PO ×2 (04:33→09:51)
[2021-02-28] MEDS ORDERED: MAGN100T6 PO ×2 (04:35→09:51)
[2021-02-28] MEDS ORDERED: DULO60CA6 PO ×2 (04:36→09:51)
[2021-02-28] MEDS ORDERED: ACET12.55 PO (04:41)
[2021-02-28] MEDS ORDERED: IBUP200T44 PO (04:43)
[2021-02-28] MEDS ORDERED: MORP-15 PO ×2 (04:44→09:58)
[2021-02-28] MEDS ORDERED: ONDANSETRON PF 4 MG/2 ML VIAL. IVP PRN (04:45)
[2021-02-28] MEDS ORDERED: MORPHINE SULFATE 2 MG/ML DISP.SYRIN. IVP PRN (04:45)
[2021-02-28] MEDS ORDERED: IV NORMAL SALINE 50ML 50 ML ONE (04:46)
[2021-02-28] MEDS ORDERED: cefTRIAXone SODIUM 1 GM VIAL ONE (04:46)
[2021-02-28 04:57] LABS: BILIRUBIN,URINE NEG (NEG); CLARITY,URINE CLEAR; COLOR,URINE YELLOW; GLUCOSE,URINE 100 mg/dL (NEG)
[2021-02-28 04:58] LABS: NITRITE,URINE NEG (NEG)
[2021-02-28 04:59] LABS: BGAS PH 7.35 (7.35-7.46)
[2021-02-28 05:00] LABS: BACTERIA,URINE 0 /HPF (0-FEW)
[2021-02-28] MEDS ORDERED: LABETALOL 20 MG/4 ML DISP.SYRIN. IVP ONE (05:00)
--- NOTE | 2021-02-28 05:06 | RAD ---
Chest AP portable at 0301: Reason for examination: Short of breath. Comparison is made to previous study dated 02/24/2020. The heart size is normal. Mediastinum is unremarkable. Lung fagan are clear. No acute bony abnormali ties are seen. IMPRESSION: No acute cardiopulmonary disease evident. Electronically signed by: Isabella Musa MD (02/28/2021 5:04 AM) SARAH
[2021-02-28] MEDS ORDERED: PANTOPRAZOLE IV 40 MG VIAL. IVP ONE (05:15)
--- NOTE | 2021-02-28 06:33 | EKG ---
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
--- NOTE | 2021-02-28 09:38 | NUR ---
PATIENT ARRIVED TO THE UNIT FROM THE ED VIA GURNEY ACCOMPANIED BY 2 [facility] GUARDS. PATIENT IS ALERT AND ORIENTED. PATIENT IS COMPLAINING OF A HEADACHE AND NAUSEA. PATIENT IS ON 8L NC. PATIENT NORMALLY WEARS 4-5L NC AT HOME. PATIENT STATED THAT HE HAS BECOMING INCREASINGLY SHORT OF BREATH RECENTLY AND THINKS HE MAY HAVE COVID. PATIENT RAPID COVID TEST IS NEGATIVE AND WE ARE STILL WAITING ON THE PCR RESULTS. WILL TAKE THE NECESSARY PRECAUTIONS UNTIL PCR RESULTS ARE OBTAINED. DR STANLEY WAS PAGED FOR ADMISSION ORDERS AND TO CLARIFY PATIENT ADMISSION STATUS. PATIENT IS MED SURG WITH CONSULT TO CASE MANAGEMENT FOR HOSPICE CARE.
[2021-02-28] MEDS ORDERED: GABA600T7 PO (09:51)
[2021-02-28] MEDS ORDERED: tylenol with codeine PO (09:58)
[2021-02-28] MEDS ORDERED: IBUP600T16 PO (09:58)
[2021-02-28] MEDS ORDERED: MORPHINE ER 15 MG TABLET.ER PO ONE ×2 (10:35→11:30)
[2021-02-28 11:00] VITALS: BP 153/90
[2021-02-28] MEDS ORDERED: MORPHINE ER 15 MG TABLET.ER PO SCH ×2 (11:00→21:00)
[2021-02-28] MEDS: MORPHINE ER 15 MG TABLET.ER PO SCH ×2 (11:00→20:34)
[2021-02-28] MEDS: GABAPENTIN 400 MG CAPSULE. PO SCH ×2 (11:01→20:34)
[2021-02-28] MEDS: DULoxetine HCL 60 MG CAPSULE.DR PO SCH (11:01)
[2021-02-28] MEDS: ACETAMINOPHEN/CODEINE 300/30MG TABLET PO PRN ×2 (11:01→20:35)
[2021-02-28] MEDS: POLYETHYLENE GLYCOL 3350 17 GM PACKET. PO SCH ×2 (14:00→20:33)
[2021-02-28 15:00] VITALS: BP 142/85
--- NOTE | 2021-02-28 16:13 | RAD ---
EXAM: CT head without contrast INDICATION: Dizziness and lightheadedness COMPARISON: None TECHNIQUE: Axial CT imaging through the head without intravenous contrast. One or more of the following individualized dose reduction techniques were utilized for this examinat ion: 1. Automated exposure control 2. Adjustment of the mA and/or kV according to patient size 3. Use of iterative reconstruction technique. FINDINGS: The ventricles and sulci are within normal limits. There is no intracranial hemorrhage, acute infarct , or mass lesion. Pleitez-white matter differentiation is maintained. No acute fracture. The visualized paranasal sinuses and mastoid air cells are clear. IMPRESSION: No acute intracranial abnormality. Electronically signed by: Brynn Rouse MD (02/28/2021 4:11 PM) [id number]
--- NOTE | 2021-02-28 16:57 | HP ---
ADMIT DATE: 02/28/2021 HISTORY OF PRESENT ILLNESS: The patient is a 61-year-old male patient and an [facility], who presented to the Emergency Room with shortness of breath. He states that he is always somewhat short of breath and on 3-4 liters of oxygen all the time, but over the last 12 hours or so it has gotten considerably more short of breath and requires more oxygen. He denied any recent trauma, travel, illness, fever or chest pain. He also feels that he was dizzy and describes his feeling as foggy, but denied any nausea, vomiting. He did complain of dyspnea on exertion, some orthopnea, paroxysmal nocturnal dyspnea. He also endorses a distended abdomen with some cramping 5/10, dull and achy in nature. States has been eating and drinking normally. He stated that he is making urine and stool normally for him. He was extensively investigated in the Emergency Room, has had lab work and imaging studies. His lab works were other than thrombocytopenia were unremarkable. His blood gases showed a pH of 7.35, a pCO2 of 52, pO2 of 72, bicarbonate 28 and oxygen saturation was 93%. His coagulations are essentially normal with the prothrombin time, INR and APTT within normal limits. His chemistry apart from mild hyperkalemia are all within normal range as hyperglycemia, slightly elevated liver enzymes. Urinalysis essentially unremarkable other than mild proteinuria and glycosuria, has had imaging studies including CT scan of the abdomen and pelvis, which basically showed that the patient is cirrhotic with a large mass in the inferior right lobe of the liver, now measuring 4 cm in the greatest dimension and probably corresponds to the patient's known hepatocellular carcinoma, rim calcified exophytic mass in the left lobe of the liver measuring 2.8 cm in greatest dimension without significant changes, splenomegaly, ascites, which is increased from previous exam. CT angio of the chest with contrast showed no evidence of pulmonary embolism, no acute aortic aneurysm or dissection, no acute cardiopulmonary disease evident. The patient was admitted and was continued on his medication and to consult our case management as apparently the patient himself has decided not to take any of his medication, and given the unremarkable CT scan of the chest and disproportionate hypoxemia, the patient probably has hepatopulmonary syndrome and only other aspect that has not looked into is CT scan of the head, I will also check his orthostatics and check his ammonia. PAST MEDICAL HISTORY: Significant for hepatitis C with liver cirrhosis due that he is status post therapy for hepatitis C. He has also diabetes, portal hypertension with esophageal varices and ascites and acute blood loss anemia. PAST SURGICAL HISTORY: According to him, he has 31 surgeries. He has multiple endoscopies and colonoscopies. ALLERGIES: He is allergic to NONSTEROIDAL ANTI-INFLAMMATORY medication, CALCIUM CARBONATE, ENALAPRIL AND KETOROLAC. FAMILY HISTORY: Noncontributory. SOCIAL HISTORY: He has been in group home for all his life since he was 20 years old. He apparently does not drink or smoke. MEDICATIONS: He is currently on the following medication, but apparently he was not taking by his own choice including ibuprofen 600 mg 3 times a day, morphine sulfate extended release 15 mg twice a day, gabapentin 1200 mg twice a day, duloxetine 60 mg daily, hydroxyzine pamoate 25 mg every 6 hours, magnesium citrate 100 mg takes four tablets at bedtime, Ritalin glycol 17 grams daily, and Tylenol with Codeine 2 tablets 3 times a day. PHYSICAL EXAMINATION: GENERAL: On arrival to the Emergency Room, the patient looked well and definitely showed no evidence of pallor, jaundice, cyanosis. No lymphadenopathy, no thyromegaly, no jugular venous distention. Mild bilateral lower limb edema. VITAL SIGNS: His heart rate was 95, blood pressure 161/99, temperature was 98.5, respiratory rate 14, and oxygen saturation was 92% on 15 liters of oxygen. HEAD, EYES, EARS, NOSE, AND THROAT: Normocephalic, atraumatic. NECK: Supple. HEART: Showed normal first and second heart sounds. No gallop or murmur. CHEST: Clear to auscultation. No crepitation or rhonchi. ABDOMEN: Markedly distended, soft with positive shifting dullness. There is no guarding or rigidity. No organomegaly. All hernial orifice intact. Bowel sounds normal. NEUROLOGIC: He was awake, alert, responding appropriately. All cranial nerves intact. He moves extremities without difficulty. LABORATORY DATA: On admission showed a white cell count 5800, hemoglobin 14, hematocrit 43, MCV 85 and platelet count of 76,000. His serum sodium was 136, potassium 5.3, chloride 103, bicarbonate 26, anion gap of 7, BUN 20, creatinine 0.5. Estimated GFR was 170 mL per minute, his glucose was ___, calcium was 8.2. Lactic acid is 1.3, magnesium 2, total bilirubin is normal. Alkaline phosphatase slightly elevated. ALT is normal. His troponin was less than 0.017. His beta natriuretic peptide was 68. Total protein was 6.4, albumin was 3.3. His prothrombin time/INR and APTT are normal. Blood gases showed a pH of 7.35, pCO2 of 52, pO2 72, bicarbonate 28 and oxygen saturation was 93% on FiO2 100%. Urinalysis showed the urine was yellow, clear with a pH of 5, specific gravity more than 1.030, more than 100 mg/dL protein in the urine and 100 mg of glucose. The urine was negative for ketones, moderate amount of blood, negative for nitrite, negative for leukocyte esterase, 1-2 rbc's, 1-4 wbc's and no bacteria. His chest x-ray showed the heart size is normal. Mediastinum is unremarkable. Lung fagan are clear. No acute bony abnormality is seen. His CT angio of the chest showed no evidence of pulmonary embolism, no aortic aneurysm or dissection, no acute cardiopulmonary disease evident. On CT scan of the abdomen and pelvis showed the patient has cirrhotic liver with enlarging mass in the anterior right lobe of the liver now measuring 4 cm in greatest dimension, probably corresponds to the patient's known hepatocellular carcinoma, then calcified exophytic mass in the left lobe of the liver measuring 2.8 cm in greatest dimension without significant changes, splenomegaly and ascites, which has increased from previous exam. PLAN: My plan is to check his ammonia level, check his CT scan of the head without contrast and check his orthostatics and also his oxygen saturation without oxygen line, sitting and standing to see whether he has a hepatopulmonary syndrome. We will have to discuss with renal case manager and his doctor there at [facility] whether hospice care can be accommodated. JHONATHAN DR: [place] TID: [id number]
[2021-02-28] MEDS ORDERED: DEXTROSE 50% 25 GM / 50ML DISP.SYRIN. IV PRN (19:15)
[2021-02-28 19:45] VITALS: BP 142/85
[2021-02-28] MEDS: IBUPROFEN 600 MG TABLET. PO PRN (20:34)
[2021-02-28] MEDS: INSULIN LISPRO 300 UNITS/3 ML VIAL. SQ SCH (20:59)
[2021-02-28] MEDS ORDERED: MAGNESIUM OXIDE 400 MG TABLET PO SCH (21:00)
--- NOTE | 2021-02-28 22:50 | NUR ---
Pt gets up to go the bathroom and desats to 79%. Pt states, "I feel ok. Getting up going to the bathroom is nothing."
[2021-03-01] MEDS: IBUPROFEN 600 MG TABLET. PO PRN ×3 (03:56→17:59)
[2021-03-01] MEDS: ACETAMINOPHEN/CODEINE 300/30MG TABLET PO PRN ×2 (03:56→18:00)
[2021-03-01 04:10] VITALS: BP 164/99
[2021-03-01 07:00] VITALS: BP 184/107
[2021-03-01 07:08] LABS: HEMATOCRIT 39.4 % (39.0-53.0); HEMOGLOBIN 12.8 g/dL (13.0-17.5); RED BLOOD COUNT 4.58 x10^6/uL (4.30-5.70); RED CELL DISTRIBUTION WIDTH 20.3 % (11.5-14.5); WHITE BLOOD COUNT 4.6 x10^3/uL (4.0-11.0)
[2021-03-01 07:25] LABS: ALBUMIN 2.8 g/dL (3.4-5.0); CREATININE 0.9 mg/dL (0.7-1.3); GFR 86.4; POTASSIUM 4.3 mmol/L (3.5-5.1); TOTAL BILIRUBIN 0.8 mg/dL (0.2-1.0); TOTAL PROTEIN 5.6 g/dL (6.4-8.2)
[2021-03-01] MEDS: INSULIN LISPRO 300 UNITS/3 ML VIAL. SQ SCH ×3 (07:30→16:30)
[2021-03-01] MEDS ORDERED: INSULIN LISPRO 300 UNITS/3 ML VIAL. SQ SCH (08:00)
[2021-03-01] MEDS: DULoxetine HCL 60 MG CAPSULE.DR PO SCH (08:54)
[2021-03-01] MEDS: MORPHINE ER 15 MG TABLET.ER PO SCH ×2 (08:55→18:00)
[2021-03-01] MEDS: hydrOXYzine PAMOATE 25 MG CAPSULE PO PRN ×2 (08:55→18:00)
[2021-03-01] MEDS: GABAPENTIN 400 MG CAPSULE. PO SCH ×2 (08:55→17:59)
[2021-03-01] MEDS: POLYETHYLENE GLYCOL 3350 17 GM PACKET. PO SCH ×2 (09:00→14:00)
[2021-03-01 11:00] VITALS: BP 160/99
[2021-03-01 15:00] VITALS: BP 187/103
--- NOTE | 2021-03-01 18:45 | NUR ---
Patient was discharged back to facility with recommendations for hospice and increased oxygen needs. Patient discharge information packet was sent with [facility] guard. Patient left the unit via wheelchair escorted by [facility] personnel. Patient was on 8L NC upon discharge.
--- NOTE | 2021-03-06 18:30 | DS ---
DATE OF DISCHARGE: 03/01/2021 HOSPITAL COURSE: The patient is a 61-year-old male patient an [facility], who presented to the Emergency Room with shortness of breath. He states that he is always somewhat short of breath on 3 or 4 liters of oxygen all the time, but over the last 12 hours or so, it has gotten considerably more short of breath and requires more oxygen. He denied any recent trauma, travel illness, fever or chest pain. He also feels that he was dizzy and describes his feeling as foggy, but denied any nausea or vomiting. He did complain of dyspnea on exertion, some orthopnea, paroxysmal nocturnal dyspnea. He also endorses distended abdomen with some cramping. He rates the pain is about 5/10, dull and achy in nature. He stated that he has been eating and drinking normally. He states that he is making urine and stool normally for him. He was extensively investigated in the Emergency Room, has had lab work and imaging studies. His lab works were unremarkable except for thrombocytopenia. His blood gases showed a pH of 7.36, pCO2 of 52, pO2 of 72, bicarbonate 26 and oxygen saturation of 93%. His coagulation, however, was essentially normal with normal prothrombin time, INR and aPTT. His chemistry apart from mild hyperkalemia were all within normal range. His blood sugar was slightly elevated. Urinalysis is essentially unremarkable other than mild proteinuria and glycosuria. His imaging studies included CT scan of the abdomen and pelvis that showed his liver is cirrhotic with large masses in the inferior right lobe of the liver, now measuring 4 cm in the greatest dimension and probably corresponds to the patient's known hepatocellular carcinoma. He has rim calcified exophytic mass in the left lobe of the liver measuring 2.8 cm in greatest dimension without significant changes. He has splenomegaly, ascites, which is increased from previous exam. CT angio of the chest with contrast showed no evidence of pulmonary embolism, no acute aortic aneurysm or dissection, no acute cardiopulmonary disease is evident. The patient was admitted and was continued on his medication. We did consult our upper caser as the patient has stage IV liver cancer and would benefit from being in palliative care team and/or hospice care. Given his disproportionate hypoxemia without any evident reason that, he probably has hepatopulmonary syndrome and we did actually check his oxygen saturation lying, sitting, and standing without oxygen and his oxygen saturation plummets when he stands up. He was continued on all his medications and I did have a lengthy discussion with his primary care physician at the [facility], who stated that the patient himself has chosen to stop all active aggressive treatment and given that he already has stage IV liver disease and he decided to stop all aggressive form of therapy, a decision was made to discharge him back on hospice to the [facility]. PHYSICAL EXAMINATION: GENERAL: When I examined him on the day of discharge, he looked well and was clearly in no apparent respiratory distress, pale, but no jaundice, cyanosis or thyromegaly. No jugular venous distention. No limb edema. VITAL SIGNS: His heart rate was 69, blood pressure was 187/103, temperature was 98, respiratory rate 24, and oxygen saturation was 89% on 8 liters of oxygen. HEAD, EYES, EARS, NOSE AND THROAT: Normocephalic, atraumatic. NECK: Supple. HEART: Normal first and second heart sounds, no gallop, rub or murmur. CHEST: Clear to auscultation, no crepitation or rhonchi. ABDOMEN: Distended, soft, nontender with positive shifting dullness. NEUROLOGIC: He was grossly intact. LABORATORY DATA: Surprisingly, his ammonia level was normal and he has no flapping tremor. His white cell count was 4600, hemoglobin 12.8, hematocrit 39, MCV 86 and platelet count of 44,000. His most recent serum sodium was 139, potassium 4.3, chloride 105, bicarbonate 29, anion gap of 5, BUN 20, creatinine 0.9. Estimated GFR was 89 mL per minute. His glucose was 173, calcium was 8. Total bilirubin, AST, ALT were normal. Alkaline phosphatase slightly elevated. Total protein 5.6, albumin was 2.8. He was discharged to [facility] to go on hospice and to continue on following medications: Duloxetine for Cymbalta 60 mg once a day; gabapentin 600 mg twice a day; hydroxyzine pamoate 25 mg every 6 hours; ibuprofen 600 mg 3 times a day; magnesium citrate 100 mg, he takes four tablets at bedtime; morphine sulfate extended release 15 mg twice a day; polyethylene glycol 17 grams daily; and Tylenol with codeine 2 tablets 3 times a day. FINAL DISCHARGE DIAGNOSES: 1. Stage IV hepatocellular carcinoma. 2. Chronic hepatitis C with liver cirrhosis. 3. Type 2 diabetes mellitus. 4. Portal hypertension. 5. Esophageal varices. 6. Ascites. OTTO/PAUL DR: [place] TID: [id number]
== END 2021-03-01 18:40 | disposition hospice, inpatient (51) | DRG 436 ==
LOC: ER 02:36 → EEVIPCON 02:36 → ICU 04:39
PROVIDERS: ADMIT Internal Medicine; ATTEND Internal Medicine
DX: C22.0 Liver cell carcinoma (principal); J98.11 Atelectasis; R18.8 Other ascites; I85.10 Secondary esophageal varices without bleeding; K76.81 Hepatopulmonary syndrome; E11.65 Type 2 diabetes mellitus with hyperglycemia; E78.5 Hyperlipidemia, unspecified; E87.5 Hyperkalemia; I10 Essential (primary) hypertension; J44.9 Chronic obstructive pulmonary disease, unspecified; K74.60 Unspecified cirrhosis of liver; R09.02 Hypoxemia; Z66 Do not resuscitate; Z82.49 Family history of ischemic heart disease and other diseases of the circulatory system; Z85.05 Personal history of malignant neoplasm of liver; Z87.891 Personal history of nicotine dependence; F32.9 Major depressive disorder, single episode, unspecified; F41.9 Anxiety disorder, unspecified; K21.9 Gastro-esophageal reflux disease without esophagitis; Z90.49 Acquired absence of other specified parts of digestive tract; B18.2 Chronic viral hepatitis C; Z86.16 Personal history of COVID-19; D69.6 Thrombocytopenia, unspecified; Z20.822 Contact with and (suspected) exposure to COVID-19
CPT/HCPCS: 36415; 36600; 70450; 71045; 71275; 74176; 80053; 81001; 82105; 82140; 82803; 82947; 83605; 83735; 83880; 84484; 85025; 85027; 85610; 85730; 87426; 93005; 96374; 96375; C9113; J0696; J1815; J2270; J2405; J3490; Q0177; Q9967; U0003; 99285-25